=== PATIENT | male | born 1985 | race African-American/Black ===

== ENCOUNTER 2017-08-12 15:42 | Emergency (ER) | payer MEDICAID ==
[2017-08-12 15:51] VITALS: TEMP 97.9
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
[2017-08-12 17:22] VITALS: BP 130/58; PULSE 100; RESP 15; O2SAT 96
== END 2017-08-12 17:21 | disposition home or self-care (01) ==
DX: Z48.02 Encounter for removal of sutures (principal); F17.200 Nicotine dependence, unspecified, uncomplicated; Z98.890 Other specified postprocedural states
CPT/HCPCS: L4386